=== PATIENT | female | born 1945 | race Caucasian/White ===

== ENCOUNTER 2024-03-07 04:53 | Emergency (ER) | payer MEDICARE, SELFPAY ==
--- NOTE | ~2024-03-07 | CT_ITS ---
EXAMINATION: 1. CT facial & cervical spine wo DATE: 03/07/2024 05:51 INDICATION: Anticoagulated patient with head injury post fall TECHNIQUE: 1. Computed tomography (CT) of the maxillofacial region and of the cervical spine were performed with out intravenous contrast. Sagittal and coronal reconstructions of both regions were obtained. Automat ed exposure control and iterative reconstruction technique were employed. The dose-length product was 462.95 mGy-cm. COMPARISON: None. FINDINGS: Maxillofacial CT: Right periorbital soft tissue swelling with prominent hematoma which extends into the preseptal tissu es. No post septal inflammatory stranding. Globes appear intact with change of bilateral intraocular lens replacements. No maxillofacial fractures. Specifically the nasal bones, zygomatic arches and wal ls of the orbits and paranasal sinuses are all intact. Mandible is also intact with mild left-sided a nd severe right-sided temporomandibular osteoarthritis. The mandible and maxilla are edentulous with alveolar ridges rib changes. There is mild mucosal thickening in the bilateral maxillary and ethmoid sinuses. Large right otomastoiditis effusion. Small left mastoid effusion. Cervical spine CT: Evaluation of the lower cervical spine is limited by metallic streak artifact associated with bilater al total shoulder arthroplasties. There is a thoracic kyphosis on the institutional asset manager topogram with firearms assembly supervisor y exaggerated cervical lordosis. No spondylolisthesis or facet subluxation. Moderate osteoarthritis a t the atlantoaxial articulation. There is mild anterior wedging at T1 and T2 which appears chronic at T1 but potentially more recent at T2 with subtle increased sclerosis along the mildly depressed supe rior endplate. Partially visualized T5 burst fracture with 80% anterior vertebral body height loss. T here appear to be secondary to degenerative skeletal changes at the facet joints, the adjacent costov ertebral articulations and the superior endplate of T6 suggesting this is chronic. Moderate to severe disc height loss at C4-C5. There is moderate uncovertebral osteoarthritis bilaterally at C3-C4 and C 4-C5. Disc bulge at C2-C3 and small posterior disc ossified complexes at C3-C4 and C4-C5 resulting in mild central canal stenosis at these levels. Multilevel severe cervical facet osteoarthritis slightl y more prominent on the right. This contributes to multilevel mild bilateral cervical neural foramina l stenosis. Emphysema and mild biapical pleural-parenchymal scarring. Diffuse groundglass opacities w ith some septal line thickening in the visualized upper lungs consistent with mild pulmonary edema. IMPRESSION: 1. Prominent right periorbital soft tissue swelling with hematoma. Orbits appear otherwise normal and there are no maxillofacial fractures. 2. Cervical spondylosis with moderate to severe disc height loss at C4-C5 and multilevel severe bilat eral facet osteoarthritis. No acute cervical osseous abnormality. 3. Chronic appearing mild compression fracture T1 and T5 burst fracture with severe anterior vertebra l body height loss with additional mild T2 compression fracture which appears potentially more recent . 4. Mild emphysema with mild to moderate pulmonary edema in the visualized upper lungs. Reviewed, dictated and finalized at location A. IMPRESSION: 1. Prominent right periorbital soft tissue swelling with hematoma. Orbits appea r otherwise normal and there are no maxillofacial fractures. 2. Cervical spondylosis with moderate to severe disc height loss at C4-C5 and m ultilevel severe bilateral facet osteoarthritis. No acute cervical osseous abno rmality. 3. Chronic appearing mild compression fracture T1 and T5 burst fracture with se edgardo anterior vertebral body height loss with additional mild T2 com
--- NOTE | ~2024-03-07 | CT_ITS ---
EXAMINATION: CT brain wo con DATE: 03/07/2024 05:51 INDICATION: Anticoagulated patient post fall with head injury TECHNIQUE: Computed tomography (CT) of the head was performed without intravenous contrast. Sagittal and coronal reconstructions were performed. The mA was adjusted according to patient size. Iterative reconstruction technique was employed. The dose-length product was 681.00 mGy-cm. COMPARISON: None FINDINGS: Preseptal soft tissue swelling about the right orbit. Orbits appear normal aside from changes of bila teral intraocular lens replacement with no post septal stranding. No fracture. No acute intracranial hemorrhage, acute infarction or abnormal extra axial fluid collection. There is mild scattered white matter hypoattenuation consistent with chronic small vessel ischemic disease. Symmetric prominence of the sulci and subarachnoid spaces overlying the convexities consistent with moderate age-appropriate diffuse cerebral volume loss. Ventricles are normal and symmetric. No mass/mass effect. Mild mucosa l thickening in the right maxillary sinus. Small left and large right mastoid effusions. IMPRESSION: 1. Preseptal soft tissue swelling at the right orbit. No fracture or acute intracranial process. 2. Age-related changes including moderate diffuse volume loss and mild scattered white matter hypoatt enuation consistent with chronic small vessel ischemic disease. Reviewed, dictated and finalized at location A. IMPRESSION: 1. Preseptal soft tissue swelling at the right orbit. No fracture or acute intr acranial process. 2. Age-related changes including moderate diffuse volume loss and mild scattere d white matter hypoattenuation consistent with chronic small vessel ischemic di sease.
[2024-03-07 04:53] VITALS: BP 124/92; PULSE 99; RESP 21; TEMP 36.3; O2SAT 97
--- NOTE | 2024-03-07 07:15 | ED.FALL ---
HPI - Fall General Chief Complaint: Fall Stated Complaint: GLF, RIGHT EYE HEMATOMA Time Seen by Provider: 03/07/24 06:49 History of Present Illness HPI Narrative: 78-year-old female presenting to the emergency department for evaluation for facial injury. Patient had evaluation fall from bed and injured her right face. Patient is on Eliquis. Patient does have a facial contusion over the right eye. Patient's daughter is present and states that the patient is at her baseline. Related Data Allergies Allergy/AdvReac Type Severity Reaction Status Date / Time Penicillins Allergy Mild Rash Verified 02/17/23 09:45 Review of Systems Review of Systems: All systems reviewed & are unremarkable except as noted in HPI and below PMFSH Past Medical History Medical History (Updated 03/07/24 @ 07:20 by Omar Hebert MD) Insomnia Exam Narrative: APPEARANCE: Well appearing, no pain, no distress, well-nourished. HEAD: normocephalic, right orbital hematoma. EYES: PERRLA/EOMI, conjunctivae clear. tunnel pressure in the unaffected left eye was 17 and right eye was 21 NOSE: Normal no drainage EARS:TMS clear with good light reflex. THROAT: Pharynx clear, no exudate. NECK: Supple. No adenopathy, no masses. RESPIRATORY: Airway patent, respirations nonlabored. Clear to auscultation bilaterally, no rales, rhonchi, wheezing. CARDIOVASCULAR: Regular rate and rhythm without murmurs rubs or gallops. ABDOMINAL: Soft, nontender, nondistended, normal bowel sounds MUSCULOSKELETAL: Moves all extremities. Strength/ROM intact, No edema, No calf tenderness. NEURO: Alert. Cranial nerves II through XII intact. Grossly intact SKIN: Warm, dry. Normal Color Course Course Emergency Course: Patient and family are updated the results of the imaging and patient was discharged back to her care facility. Vital Signs Vital signs: Vital Signs Temperature 97.3 F L 03/07/24 04:53 Pulse Rate 99 03/07/24 04:53 Respiratory Rate 21 H 03/07/24 04:53 Blood Pressure 124/92 H 03/07/24 04:53 Pulse Oximetry 97 03/07/24 04:53 Oxygen Delivery Nasal Cannula 03/07/24 04:53 Oxygen Flow Rate 2 03/07/24 04:53 Temperature 97.3 F L 03/07/24 04:53 Pulse Rate 85 06/30/24 07:43 Respiratory Rate 16 03/07/24 07:43 Blood Pressure 153/85 H 03/07/24 07:43 Pulse Oximetry 99 03/07/24 07:43 Oxygen Delivery Nasal Cannula 03/07/24 04:53 Oxygen Flow Rate 2 03/07/24 04:53 MDM - Fall MDM Narrative Medical decision making narrative: 78-year-old female presented emergency department for evaluation after having a mechanical fall. Patient did injure her right face and did have a significant hematoma over the right eye. Patient is able to open the right eye and patient's German-Pen pressures were not significantly elevated. CT face shows that there is a large hematoma but shows no orbit injury and no bony injury. Patient was stable at time of transfer back to her care facility. Differential Diagnosis Differential diagnosis: Likely other (Subarachnoid hemorrhage, subdural hematoma, orbital rupture, orbital fracture, extraocular muscle entrapment) Imaging Data Radiologist's impression: Impressions Head CT 03/07/24 06:25 IMPRESSION: 1. Preseptal soft tissue swelling at the right orbit. No fracture or acute intracranial process. 2. Age-related changes including moderate diffuse volume loss and mild scattered white matter hypoattenuation consistent with chronic small vessel ischemic disease. Head/Cervical Spine/Facial Bones CT 03/07/24 06:52 IMPRESSION: 1. Prominent right periorbital soft tissue swelling with hematoma. Orbits appear otherwise normal and there are no maxillofacial fractures. 2. Cervical spondylosis with moderate to severe disc height loss at C4-C5 and multilevel severe bilateral facet osteoarthritis. No acute cervical osseous abnormality. 3. Chronic appearing mild compression fracture T1 and T5 burst fracture with
[2024-03-07 07:43] VITALS: BP 153/85; PULSE 85; RESP 16; O2SAT 99
== END 2024-03-07 09:50 ==
PROVIDERS: Emergency Provider Emergency Medicine; PCP Family Medicine
DX: S05.11XA Contusion of eyeball and orbital tissues, right eye, initial encounter (principal); Z79.01 Long term (current) use of anticoagulants; W06.XXXA Fall from bed, initial encounter; M47.812 Spondylosis without myelopathy or radiculopathy, cervical region; J43.9 Emphysema, unspecified; M48.54XA Collapsed vertebra, not elsewhere classified, thoracic region, initial encounter for fracture
CPT/HCPCS: 70450; 70486; 72125; 99284